=== PATIENT | male | born 1980 | race African-American/Black ===

== ENCOUNTER 2020-12-19 07:17 | Inpatient (IN) ==
[2020-12-19] MEDS ORDERED: FUROSEMIDE 40 MG/4 ML VIAL IV STA (07:34)
[2020-12-19 08:37] LABS: Basophils % 0.1 % (0.0-0.8); Hematocrit 44.1 VOL% (42.0-52.0); Immature Granulocytes % 0.9 %; Immature Granulocytes Absolute 0.08 #; Lymphocytes # 1.2 10*3/uL (1.4-4.0); Lymphocytes % 14.2 % (21.2-54.2); Mean Corpuscular HGB Conc 31.7 GM/DL (32-36); Mean Corpuscular Volume 94.2 FL (87-102); Mean Platelet Volume 13.5 FL (9.6-12.0); Monocytes % 8.5 % (1.7-12.7); NRBC # 0.06 10*3/uL; Neutrophils % 76.3 % (38.7-73.9); Platelet Count 164 T/CUMM (130-400); Red Blood Count 4.68 MC/CUMM (3.8-5.5); Red Cell Distribution Width 19.3 % (9.3-17.3); White Blood Count 8.4 T/CUMM (4-12)
[2020-12-19 08:45] LABS: PT Patient Result 39.7 SECS (9.8-11.9); Partial Thromboplastin Time 34.5 SECS (23.9-33.8)
[2020-12-19 09:54] LABS: Albumin 3.3 G/DL (3.4-5.0); Bilirubin,Total 6.6 MG/DL (0.2-1.0); Calcium 9.8 MG/DL (8.5-10.1); Osmolality,Calculated 263.9 MOS/KG (273-304); Potassium 4.3 MMOL/L (3.5-5.1); Total Protein 7.4 G/DL (6.4-8.2)
[2020-12-19] MEDS ORDERED: DEXTROSE 50% 25 GM/50 ML VIAL IV STA (09:54)
[2020-12-19] MEDS ORDERED: DEXTROSE 50% 25 GM/50 ML SYRINGE IV ONE (09:55)
[2020-12-19] MEDS ORDERED: ONDANSETRON 4 MG/2 ML VIAL IV PRN (10:30)
[2020-12-19] MEDS ORDERED: SIMETHICONE CHEW 125 MG TABLET PO PRN (10:30)
[2020-12-19] MEDS ORDERED: ALBUTEROL 2.5 MG/3 ML NEB RESP TX PRN (10:30)
[2020-12-19] MEDS ORDERED: MORPHINE 4 MG/1 ML VIAL IV STA (10:35)
[2020-12-19 10:44] LABS: Hepatitis B Surface Ag Quant < 0.10 Index; Hepatitis B Surface Ag Result Non-Reactive (NonReactive); Hepatitis C Virus Ab Quant 0.14 Index; Hepatitis C Virus Ab Result Non-Reactive (NonReactive)
[2020-12-19] MEDS: DOBUTamine 500 MG/250 ML PREMIX IV SCH ×2 (11:35→19:57)
[2020-12-19] MEDS: PANTOPRAZOLE 40 MG TABLET PO SCH (12:09)
[2020-12-19] MEDS: ENOXAPARIN 30 MG/0.3 ML SYRINGE SUBCUT SCH (12:10)
[2020-12-19 13:14] LABS: Bilirubin,Urine Small mg/dL (Negative); Blood, Urine Moderate mg/dL (Negative); Glucose,Urine (UA) 50 mg/dL (Negative); Hyaline Casts,Urine 7 /LPF (0-3); Ketones,Urine 5 mg/dL (Negative); Mucus,Urine Occasional /LPF (Occasional); Nitrite,Urine Negative (Negative); Protein,Urine >=500 MG/DL; RBC,Urine 19 /HPF (0-4); Squamous Epithelial Cell,Urine Occasional /HPF (0-10); Urine Appearance CLOUDY (Clear); Urine Color Amber (Yellow); Urine Specific Gravity 1.016 (1.001-1.035); WBC,Urine <1 /HPF (0-6)
[2020-12-19 13:17] LABS: Barbiturates Screen,Urine Negative (Negative); Benzodiazepines Screen,Urine Negative (Negative); Cannabinoid Screen,Urine Negative (Negative); Opiate Screen,Urine Negative (Negative); Phencyclidine Screen,Urine Negative (Negative)
[2020-12-19] MEDS ORDERED: FUROSEMIDE 40 MG/4 ML VIAL IV ONE (13:32)
[2020-12-19] MEDS ORDERED: NITROGLYCERIN DRIP 50 MG/250 ML BOTTLE IV PRN (13:55)
[2020-12-19] MEDS: NITROGLYCERIN DRIP 50 MG/250 ML BOTTLE IV SCH (14:38)
[2020-12-20] MEDS: DOBUTamine 500 MG/250 ML PREMIX IV SCH ×2 (04:40→13:43)
[2020-12-20 05:06] LABS: Basophils % 0.1 % (0.0-0.8); Hematocrit 37.9 VOL% (42.0-52.0); Hemoglobin 12.8 GM/DL (14.0-18.0); Immature Granulocytes % 1.1 %; Immature Granulocytes Absolute 0.15 #; Lymphocytes # 1.2 10*3/uL (1.4-4.0); Lymphocytes % 8.2 % (21.2-54.2); Mean Corpuscular HGB Conc 33.8 GM/DL (32-36); Mean Corpuscular Volume 89.6 FL (87-102); Mean Platelet Volume 12.5 FL (9.6-12.0); Monocytes % 3.2 % (1.7-12.7); NRBC # 0.16 10*3/uL; Neutrophils % 87.4 % (38.7-73.9); Platelet Count 106 T/CUMM (130-400); Red Blood Count 4.23 MC/CUMM (3.8-5.5); Red Cell Distribution Width 18.2 % (9.3-17.3); White Blood Count 14.2 T/CUMM (4-12)
[2020-12-20 05:25] LABS: Macrocytosis Slight; Polychromasia Slight
[2020-12-20 05:59] LABS: Albumin 2.9 G/DL (3.4-5.0); Bilirubin,Total 7.2 MG/DL (0.2-1.0); Calcium 8.2 MG/DL (8.5-10.1); Osmolality,Calculated 266.4 MOS/KG (273-304); Potassium 3.8 MMOL/L (3.5-5.1); Total Protein 6.5 G/DL (6.4-8.2)
[2020-12-20 06:01] LABS: Troponin I 0.737 NG/ML (0.00-0.045)
[2020-12-20] MEDS: PANTOPRAZOLE 40 MG TABLET PO SCH (09:20)
[2020-12-20] MEDS: ENOXAPARIN 30 MG/0.3 ML SYRINGE SUBCUT SCH (10:30)
[2020-12-20 11:20] LABS: CKMB % 0.7 %
[2020-12-20 11:21] LABS: Troponin I 0.857 NG/ML (0.00-0.045)
[2020-12-20 13:28] LABS: CKMB % 0.7 %
[2020-12-20 13:34] LABS: Troponin I 1.05 NG/ML (0.00-0.045)
[2020-12-20] MEDS ORDERED: FUROSEMIDE 100 MG/10 ML VIAL IV ONE (13:38)
[2020-12-20] MEDS: NITROGLYCERIN DRIP 50 MG/250 ML BOTTLE IV SCH (13:55)
[2020-12-20] MEDS ORDERED: metOLazone 5 MG TABLET PO SCH (16:00)
[2020-12-20 17:41] LABS: CKMB % 0.7 %
[2020-12-20 17:43] LABS: Troponin I 1.15 NG/ML (0.00-0.045)
[2020-12-20] MEDS: FUROSEMIDE 100 MG/10 ML VIAL IV SCH (20:34)
[2020-12-20] MEDS: carvediloL 3.125 MG TABLET PO SCH (20:38)
[2020-12-20] MEDS: metOLazone 5 MG TABLET PO SCH (20:38)
[2020-12-21] MEDS: DOBUTamine 500 MG/250 ML PREMIX IV SCH ×2 (02:40→14:47)
[2020-12-21 05:37] LABS: Basophils % 0.1 % (0.0-0.8); Eosinophils % 0.1 % (0.00-10.9); Hematocrit 37.7 VOL% (42.0-52.0); Hemoglobin 12.8 GM/DL (14.0-18.0); Immature Granulocytes % 1.2 %; Immature Granulocytes Absolute 0.16 #; Lymphocytes # 0.9 10*3/uL (1.4-4.0); Lymphocytes % 6.5 % (21.2-54.2); Mean Corpuscular Volume 89.1 FL (87-102); Mean Platelet Volume 13.4 FL (9.6-12.0); Monocytes % 3.3 % (1.7-12.7); NRBC # 0.39 10*3/uL; Neutrophils % 88.8 % (38.7-73.9); Platelet Count 111 T/CUMM (130-400); Red Blood Count 4.23 MC/CUMM (3.8-5.5); Red Cell Distribution Width 17.9 % (9.3-17.3); White Blood Count 13.5 T/CUMM (4-12)
[2020-12-21 05:59] LABS: Calcium 8.5 MG/DL (8.5-10.1); Osmolality,Calculated 268.4 MOS/KG (273-304); Potassium 3.6 MMOL/L (3.5-5.1)
[2020-12-21] MEDS: PANTOPRAZOLE 40 MG TABLET PO SCH (08:12)
[2020-12-21] MEDS: carvediloL 3.125 MG TABLET PO SCH ×2 (08:12→20:12)
[2020-12-21] MEDS: metOLazone 5 MG TABLET PO SCH (08:12)
[2020-12-21] MEDS: FUROSEMIDE 100 MG/10 ML VIAL IV SCH ×2 (08:13→15:57)
[2020-12-21 09:37] LABS: Albumin 2.9 G/DL (3.4-5.0); Bilirubin,Direct 5.81 MG/DL (0.0-0.20); Bilirubin,Indirect 2.4 MG/DL (0.0-1.0); Bilirubin,Total 8.2 MG/DL (0.2-1.0); Total Protein 6.5 G/DL (6.4-8.2)
[2020-12-21] MEDS: ENOXAPARIN 30 MG/0.3 ML SYRINGE SUBCUT SCH (09:47)
[2020-12-22] MEDS: DOBUTamine 500 MG/250 ML PREMIX IV SCH ×2 (01:40→14:34)
[2020-12-22 05:35] LABS: Basophils % 0.1 % (0.0-0.8); Eosinophils % 0.3 % (0.00-10.9); Hematocrit 38.1 VOL% (42.0-52.0); Hemoglobin 13.5 GM/DL (14.0-18.0); Immature Granulocytes % 0.6 %; Immature Granulocytes Absolute 0.04 #; Lymphocytes # 0.9 10*3/uL (1.4-4.0); Lymphocytes % 13.1 % (21.2-54.2); Mean Corpuscular HGB Conc 35.4 GM/DL (32-36); Mean Corpuscular Volume 85.6 FL (87-102); Mean Platelet Volume 13.5 FL (9.6-12.0); Monocytes % 5.1 % (1.7-12.7); NRBC # 0.12 10*3/uL; Neutrophils % 80.8 % (38.7-73.9); Red Blood Count 4.45 MC/CUMM (3.8-5.5)
[2020-12-22 06:03] LABS: Calcium 9.2 MG/DL (8.5-10.1); Osmolality,Calculated 271.1 MOS/KG (273-304); Potassium 2.8 MMOL/L (3.5-5.1)
[2020-12-22 06:04] LABS: Albumin 2.7 G/DL (3.4-5.0); Bilirubin,Direct 6.34 MG/DL (0.0-0.20); Bilirubin,Indirect 2.1 MG/DL (0.0-1.0); Bilirubin,Total 8.4 MG/DL (0.2-1.0); Total Protein 6.7 G/DL (6.4-8.2)
[2020-12-22 06:16] LABS: Platelet Count 98 T/CUMM (130-400)
[2020-12-22] MEDS: FUROSEMIDE 100 MG/10 ML VIAL IV SCH ×2 (08:39→15:28)
[2020-12-22] MEDS: PANTOPRAZOLE 40 MG TABLET PO SCH (08:40)
[2020-12-22] MEDS: POTASSIUM CHLORIDE 20 MEQ TABLET PO PRN ×5 (08:40→22:44)
[2020-12-22] MEDS: carvediloL 3.125 MG TABLET PO SCH ×2 (08:40→21:36)
[2020-12-22] MEDS ORDERED: metOLazone 5 MG TABLET PO SCH (09:00)
[2020-12-22] MEDS: ENOXAPARIN 30 MG/0.3 ML SYRINGE SUBCUT SCH (11:06)
[2020-12-23] MEDS: POTASSIUM CHLORIDE 20 MEQ TABLET PO PRN ×3 (00:45→11:30)
[2020-12-23] MEDS: DOBUTamine 500 MG/250 ML PREMIX IV SCH ×4 (00:45→15:00)
[2020-12-23 05:14] LABS: Eosinophils % 0.3 % (0.00-10.9); Hematocrit 39.2 VOL% (42.0-52.0); Hemoglobin 13.9 GM/DL (14.0-18.0); Immature Granulocytes % 0.8 %; Immature Granulocytes Absolute 0.05 #; Lymphocytes % 16.1 % (21.2-54.2); Mean Corpuscular HGB Conc 35.5 GM/DL (32-36); Mean Corpuscular Volume 85.4 FL (87-102); Monocytes % 4.9 % (1.7-12.7); Neutrophils % 77.9 % (38.7-73.9); Red Blood Count 4.59 MC/CUMM (3.8-5.5); Red Cell Distribution Width 18.2 % (9.3-17.3); White Blood Count 6.3 T/CUMM (4-12)
[2020-12-23 05:16] LABS: Platelet Count 92 T/CUMM (130-400)
[2020-12-23 05:33] LABS: Calcium 9.4 MG/DL (8.5-10.1); Osmolality,Calculated 268.4 MOS/KG (273-304); Potassium 3.1 MMOL/L (3.5-5.1)
[2020-12-23 05:47] LABS: Albumin 2.6 G/DL (3.4-5.0); Bilirubin,Direct 6.57 MG/DL (0.0-0.20); Bilirubin,Indirect 3.2 MG/DL (0.0-1.0); Bilirubin,Total 9.8 MG/DL (0.2-1.0); Total Protein 6.8 G/DL (6.4-8.2)
[2020-12-23 05:48] LABS: Platelet Estimate Decreased
[2020-12-23] MEDS ORDERED: MAGNESIUM SULF RIDER 2 GM in PREMIX 1 EACH IV ONE (07:45)
[2020-12-23] MEDS ORDERED: FUROSEMIDE 40 MG/4 ML VIAL IV SCH (09:00)
[2020-12-23] MEDS: carvediloL 3.125 MG TABLET PO SCH (09:02)
[2020-12-23] MEDS: PANTOPRAZOLE 40 MG TABLET PO SCH (09:02)
[2020-12-23] MEDS: ENOXAPARIN 30 MG/0.3 ML SYRINGE SUBCUT SCH (09:58)
[2020-12-23] MEDS ORDERED: POTASSIUM CHLORIDE 20 MEQ TABLET PO ONE (10:58)
[2020-12-23] MEDS ORDERED: FUROSEMIDE 40 MG/4 ML VIAL IV ONE (11:12)
[2020-12-23] MEDS: MORPHINE 4 MG/1 ML VIAL IV PRN ×2 (11:30→16:00)
[2020-12-23] MEDS: FUROSEMIDE 40 MG/4 ML VIAL IV SCH (16:20)
[2020-12-23] MEDS: METOPROLOL TARTRATE 25 MG TABLET PO SCH (22:02)
[2020-12-24 04:01] LABS: Basophils % 0.1 % (0.0-0.8); Eosinophils % 0.4 % (0.00-10.9); Hemoglobin 15.1 GM/DL (14.0-18.0); Immature Granulocytes % 0.4 %; Immature Granulocytes Absolute 0.03 #; Lymphocytes # 1.1 10*3/uL (1.4-4.0); Lymphocytes % 16.9 % (21.2-54.2); Mean Corpuscular Volume 84.8 FL (87-102); Monocytes % 5.5 % (1.7-12.7); NRBC # 0.05 10*3/uL; Neutrophils % 76.7 % (38.7-73.9); Red Blood Count 4.95 MC/CUMM (3.8-5.5); Red Cell Distribution Width 18.5 % (9.3-17.3); White Blood Count 6.8 T/CUMM (4-12)
[2020-12-24 04:03] LABS: Platelet Count 93 T/CUMM (130-400)
[2020-12-24 04:14] LABS: Calcium 9.5 MG/DL (8.5-10.1); Osmolality,Calculated 265.6 MOS/KG (273-304); Potassium 2.9 MMOL/L (3.5-5.1)
[2020-12-24 04:23] LABS: Platelet Estimate Decreased
[2020-12-24] MEDS ORDERED: POTASSIUM CHLORIDE 20 MEQ/15 ML UDCUP PO ONE (04:30)
[2020-12-24] MEDS: DOBUTamine 500 MG/250 ML PREMIX IV SCH ×4 (05:28→15:13)
[2020-12-24] MEDS: MORPHINE 4 MG/1 ML VIAL IV PRN (06:10)
[2020-12-24] MEDS ORDERED: MAGNESIUM SULF RIDER 4 GM in PREMIX 1 EACH IV ONE (06:24)
[2020-12-24] MEDS ORDERED: POTASSIUM CHLORIDE 20 MEQ TABLET PO ONE (06:25)
[2020-12-24] MEDS ORDERED: DIAZEPAM 5 MG TABLET PO ONE (08:02)
[2020-12-24] MEDS ORDERED: POTASSIUM CHLORIDE RIDER 10 MEQ in PREMIX 1 EACH IV PRN (08:02)
[2020-12-24] MEDS ORDERED: MAGNESIUM SULF RIDER 2 GM in PREMIX 1 EACH IV PRN (08:02)
[2020-12-24] MEDS ORDERED: diphenhydrAMINE CAP 50 MG CAPSULE PO ONE (08:02)
[2020-12-24] MEDS ORDERED: MIDAZOLAM 2 MG/2 ML VIAL ONE (08:18)
[2020-12-24] MEDS ORDERED: LIDOCAINE 1% 20 ML VIAL ONE (08:18)
[2020-12-24] MEDS ORDERED: HEPARIN/NACL 0.9% 2 UNITS/ML 1,000 UNIT/500 ML BAG IV ONE (08:26)
[2020-12-24] MEDS: METOPROLOL TARTRATE 25 MG TABLET PO SCH (10:22)
[2020-12-24] MEDS: FUROSEMIDE 40 MG/4 ML VIAL IV SCH ×2 (10:22→16:45)
[2020-12-24] MEDS: PANTOPRAZOLE 40 MG TABLET PO SCH (10:23)
[2020-12-24] MEDS: ENOXAPARIN 30 MG/0.3 ML SYRINGE SUBCUT SCH (10:23)
[2020-12-24 17:07] VITALS: BP 145/97
== END 2020-12-24 17:41 | disposition hospice, home (50) | DRG 270 ==
LOC: EDBD → N.ED 07:17 → SUATTDRO 10:29 → N.EDINP 10:29 → N.ICU 11:38
PROVIDERS: ADMIT Internal Medicine; ATTEND Internal Medicine